=== PATIENT | male | born 1980 | race Caucasian/White ===

== ENCOUNTER 2017-03-06 00:06 | Inpatient (IN) | payer OTHER ==
[~2017-03-06] VITALS: Ht 190.5 cm; Wt 89.8 kg
--- NOTE | 2017-03-06 02:05 | NUR ---
PRE- ADMISSION NOTE : The patient is a 36-year-old male who presents to [facility] for medically supervised withdrawal from HEROIN , Xanax, MJ. The patient denies history of withdrawal-induced seizures , denies to have PCP at this time. Pt. denies history of SI/HI, but states history of audio and video hallucinations when was intoxicated. Patient reports the following symptoms of withdrawal: anxiety, restlessness, mild generalized pain, tremors, difficulty concentrating, anhedonia. Pt. is cooperative, A/O x3, speech is slow and audible. Heart rate is regular. Pt denies chest pain or SOB. PERRLA, breathing is even and unlabored. Lung sounds clear in all lobes, abdomen is soft, pt complains of constipation related to opiate use. GW=167/68, HR=82, SpO2=97% with RA, RR=16, Temp=98.1. Last BM on 03/04/17. Pt's skin is warm, dry and intact. Pt. was able to provide UDS sample , see results in the PC chart. Pt. will be admitted to the unit.
[2017-03-06] MEDS ORDERED: BUPRENORPHINE HCL 2 MG TAB.SUBL SL PRN (02:15)
[2017-03-06] MEDS ORDERED: DICYCLOMINE HCL 20 MG TABLET PO PRN (02:15)
[2017-03-06] MEDS ORDERED: LORAZEPAM 2 MG/1 ML VIAL IM PRN (02:15)
[2017-03-06] MEDS ORDERED: ONDANSETRON ODT 4 MG TAB.RAPDIS SL PRN (02:15)
[2017-03-06] MEDS ORDERED: MIRALAX 17 GM POWD.PACK PO PRN (02:15)
[2017-03-06] MEDS ORDERED: METHOCARBAMOL 750 MG TABLET PO PRN (02:15)
[2017-03-06] MEDS ORDERED: LOPERAMIDE HCL 2 MG CAPSULE PO PRN ×2 (02:15)
[2017-03-06] MEDS ORDERED: LORAZEPAM 1 MG TABLET PO PRN ×2 (02:15)
[2017-03-06] MEDS ORDERED: ONDANSETRON 4 MG/2 ML VIAL IM PRN (02:15)
[2017-03-06] MEDS ORDERED: MAG HYDROX/AL HYDROX/SIMETH 30 ML LIQUID UDC PO PRN (02:15)
[2017-03-06] MEDS ORDERED: MAGNESIUM HYDROXIDE 30 ML LIQUID UDC PO PRN (02:15)
[2017-03-06] MEDS ORDERED: IBUPROFEN 400 MG TABLET PO PRN (02:15)
[2017-03-06] MEDS ORDERED: ACETAMINOPHEN 325 MG TABLET PO PRN (02:15)
[2017-03-06 02:38] LABS: *AMPHETAMINE, URINE NEGATIVE (NEGATIVE); *BARBITURATE, URINE NEGATIVE (NEGATIVE); *CANNABINOID, URINE POSITIVE (NEGATIVE); *COCCAINE, URINE NEGATIVE (NEGATIVE); *OPIATE, URINE POSITIVE (NEGATIVE); *PHENCYCLIDINE SCREEN,URINE NEGATIVE (NEGATIVE)
[2017-03-06] MEDS ORDERED: ALPR1TAB2 PO (02:56)
[2017-03-06] MEDS ORDERED: BUPR1FIL SL (02:56)
[2017-03-06] MEDS ORDERED: CLON0.1T PO (02:56)
--- NOTE | 2017-03-06 03:00 | NUR ---
ADMISSION NOTE : The patient is a 36-year-old male who presents to [facility] for medically supervised withdrawal from HEROIN , Xanax, MJ. He was admitted on 03/05/2017 at 02:15. It is his fifth Detox. Pt. is Full Code, on Reg.Diet, NKA. Pt. is on FALL precautions. The patient denies history of withdrawal-induced seizures , denies to have at this time. Pt. denies history of SI/HI, but states history of audio and video hallucinations when was intoxicated. Patient reported the following symptoms of withdrawal: anxiety, restlessness, mild generalized pain, tremors, difficulty concentrating, anhedonia. He states his substance use has negatively impacted his life by impairing close relationships, negatively impacting his physical and mental health. Upon admission pt. is cooperative, A/O x3, speech is slow and audible. Heart rate is regular. Pt denies chest pain or SOB. PERRLA, breathing is even and unlabored. Lung sounds clear in all lobes, abdomen is soft, pt complains of constipation related to opiate use. IO=050/68, HR=82, SpO2=97% with RA, RR=16, Temp=98.1. Last BM on 03/04/17. Pt's skin is warm, dry and intact. Pt was oriented to room and unit. Pt. was able to provide UDS sample , see results in the PC chart. Safety measures in place : bed on lowest position with side rails x2 up for safety, call light within reach. Will continue to monitor closely and offer help. SUBSTANCE ABUSE HISTORY : -Xanax 1.5mg QHS PO unknown time ( pt. is intoxicated, cant provide correct information, last use on 03/05/2017, uses since 2011 -HEROIN 2.5gm QD IV since 2014, last use on 03/05/2017, uses since 2011 -Marijuana 1 gm QD smoking ,last 8 years , , last use on 03/05/2017, uses since 2002 Occasionally Cocaine , Meth (IV+smoking). Pt. smokes 20 cig. QD. PAST Tx HISTORY : X4 Detox. X2 Rehab. PAST MEDICAL HISTORY : BIPOLAR . Past Family History : Parents, 7 sisters and 7 brothers are in good health
[2017-03-06 03:36] LABS: BASOPHILS % (AUTO) 0.4 % (0.0-2.0); EOSINOPHILS # (AUTO) 0.1 K/uL (0.0-0.7); EOSINOPHILS % (AUTO) 1.3 % (0.0-7.0); HEMATOCRIT 47.2 % (40-50); HEMOGLOBIN 15.8 G/DL (14.0-18.0); LYMPHOCYTES # (AUTO) 1.7 K/UL (0.8-4.8); LYMPHOCYTES % (AUTO) 17.2 % (20.5-51.5); MEAN CORPUSCULAR HEMOGLOBIN 30.2 UUG (27.0-31.0); MEAN CORPUSCULAR HGB CONC 33 g/dL (32.0-37.0); MEAN CORPUSCULAR VOLUME 90.5 FL (82.0-92.0); MONOCYTES # (AUTO) 0.5 K/UL (0.1-1.30); NEUTROPHILS # (AUTO) 7.4 K/UL (1.8-8.9); NEUTROPHILS % (AUTO) 76.1 % (38.5-71.5); PLATELET COUNT (AUTO) 244 K/UL (150-450); RED BLOOD CELL COUNT(AUTO) 5.22 MIL/UL (4.7-6.1); WHITE BLOOD COUNT (AUTO) 9.7 K/UL (4.0-11.2)
[2017-03-06 03:44] LABS: ALANINE AMINOTRANSFERASE 26 U/L (16-63); ALKALINE PHOSPHATASE 60 U/L (50-136); AMYLASE 75 U/L (25-115); ASPARTATE AMINOTRANSFERASE 17 U/L (15-37); BILIRUBIN,TOTAL 0.7 mg/dL (0.2-1.0); CARBON DIOXIDE 31 mmol/L (21-32); CHLORIDE 100 mmol/L (98-107); CREATININE 1.1 mg/dL (0.6-1.3); GLUCOSE 117 mg/dL (74-106); LIPASE 50 U/L (73-393); MAGNESIUM 2.1 mg/dL (1.8-2.4); POTASSIUM 3.9 mmol/L (3.5-5.1); TOTAL PROTEIN, SERUM 7.8 g/dL (6.4-8.2); UREA NITROGEN, BLOOD 17 mg/dL (7-18)
[2017-03-06 03:52] LABS: THYROID STIMULATING HORMONE 0.325 mIU/mL (0.358-3.740)
[2017-03-06 03:58] LABS: ETHANOL < 3 MG/DL (0-0)
[2017-03-06 04:00] VITALS: BP 101/62
--- NOTE | 2017-03-06 06:35 | NUR ---
END OF SHIFT NOTE : The patient is a 36-year-old male who presents to [facility] for medically supervised withdrawal from HEROIN , Xanax, MJ. The patient denies history of withdrawal-induced seizures . Pt. denies history of SI/HI, but states history of audio and video hallucinations when was intoxicated. Patient is on precaution. Pt remains compliant with the treatment plan. No PRNs were given during my shift. V/S remain WNL. RR=16, even and unlabored, lungs clear upon auscultation, abdomen soft and non- distended. Pt denies nausea, vomiting and diarrhea. CIWA and COWS taken when pt. was alert during the night, LAST CIWA=9 ,COWS= 7 at 0400 , OCASXE=646 ml, voided x1 , slept 0 hours. Safety measures in place : bed on lowest position with side rails x2 up for safety, call light within reach. Will continue to monitor closely and offer help.
--- NOTE | 2017-03-06 07:07 | NUR ---
Start of Shift Notes: Received patient in his room. Alert and verbally responsive. Oriented x 4. Able to make his needs known. Respirations even and unlabored. No SOB noted. Skin warm and dry to touch. Abdomen soft and non-distended. BS (+) in all 4 quadrants. No complains of N/V/D or constipation noted. No abdominal discomfort noted. Bladder non-distended. No complains of dysuria noted. Voids independently. Ambulatory ad josr with steady gait. Patient is a 36 year old male admitted for opiate/meth and BZO dependence who was placed on PRNs at this time. Prior to admission, patient was using 2.5 grams of Heroin, 1.5mg of Xanax, 1 gram of marijuana, meth and cocaine. Has past medical hx of Bipolar disorder.l Educated patient on his current plan of care for the day and his medication regimen. Encouraged oral fluid intake and encouraged group participation to learn new skills to prevent relapse. Will continue to monitor.
[2017-03-06 08:00] VITALS: BP 107/57
--- NOTE | 2017-03-06 08:00 | NUR ---
COWS/CIWA Deferred: Patient is laying in bed with eyes closed. Breathing even and unlabored. No SOB noted. COWS/CIWA deferred at this time. VS stable. Addendum: 03/06/17 at 0944 by ABBI BROWN LVN Amended: Links added.
[2017-03-06] MEDS ORDERED: DICYCLOMINE HCL 10 MG CAPSULE PO PRN (08:15)
[2017-03-06] MEDS: MULTIVITAMINS,THERAPEUTIC TABLET PO SCH (09:00)
--- NOTE | 2017-03-06 09:42 | NUR ---
MVI at 0900 not administered: MVI at 0900 not administered. Patient is in bed with eyes closed. Breathing even and unlabored. Refused to be disturbed at this time. States "I feel fine, I just want to sleep." Education provided. Will continue to monitor.
[2017-03-06 12:00] VITALS: BP 107/60
--- NOTE | 2017-03-06 12:00 | NUR ---
JULIANNE/CIKALE Deferred: Patient is laying in bed with eyes closed. Breathing even and unlabored. No SOB noted. refused to be woken up. JULIANNE/CIWA deferred at this time. VS stable. Addendum: 03/06/17 at 1418 by ABBI BROWN LVN Amended: Links added.
--- NOTE | 2017-03-06 15:00 | NUR ---
Mid Shift Notes: Attempted to assess patient, patient continues to sleep since the beginning of the shift. Denies any complains at this time. Will continue to monitor.
[2017-03-06 16:00] VITALS: BP 121/60
--- NOTE | 2017-03-06 16:00 | NUR ---
COWS/CIWA Deferred: Patient is laying in bed with eyes closed. Breathing even and unlabored. No SOB noted. Refused to be bothered. Was agitated, stated "Yea, just leave me alone!" COWS/CIWA deferred at this time. VS stable.
--- NOTE | 2017-03-06 16:32 | NUR ---
MD Communication: Notified Dr. Mercado of patient's refusal to be assessed by nurse. Per MD, continue to monitor the patient.
--- NOTE | 2017-03-06 18:54 | NUR ---
End of Shift Notes: Patient continues to be on PRNs and close monitoring. VS monitored closely. No significant abnormalities noted. Withdrawal symptoms were closely monitored. Patient refused to be woken up or be bothered when nurse is attempting to assess him. Encouraged patient to verbalize how he is feeling but patient states Just leave me alone. Patient is also irritable during the day. Unable to participate in group due to his withdrawal symptoms. Encouraged to participate in group and encouraged to increase oral fluid intake. All needs met and attended. Will continue to monitor closely.
--- NOTE | 2017-03-06 19:25 | NUR ---
START OF SHIFT NOTE : The patient is a 36-year-old male who presents to [facility] for medically supervised withdrawal from HEROIN , Xanax, MJ. The patient denies history of withdrawal-induced seizures . Pt. denies history of SI/HI, but states history of audio and video hallucinations when was intoxicated. Patient is fall precautions. Patient is irritable, moderate agitated , repeats "Give me my Subutex, it is a wrong place for me". Encouraged to participate in group and encouraged to increase oral fluid intake. RT=871/80, HR=76/min, Tuj2=510%, RR=16, unlabored and even. Skin is intact and dry, pupils reactive to the light, 3mm each. CIWA=10, COWS=7. Pt. complains of mild body ache, increased level of anxiety. PRN meds will be given NOHEMY. Safety measures in place : bed on lowest position with side rails x2 up for safety, call light within reach. Will continue to monitor closely and offer help.
--- NOTE | 2017-03-06 19:45 | NUR ---
PRN ATIVAN, BENADRYL, CATAPRESS, VISTARIL Pt. complains of increased level of anxiety, flashes (skin is dry), sleeplessness. Pt. also is agitated. PRN ATIVAN, BENADRYL, CATAPRESS, VISTARIL as ordered. CIWA=10, COWS=7. Safety measures in place : bed on lowest position with side rails x2 up for safety, call light within reach. Will continue to monitor closely and offer help.
[2017-03-06 20:00] VITALS: BP 135/80
[2017-03-06] MEDS: HYDROXYZINE PAMOATE 25 MG CAPSULE PO PRN (20:10)
[2017-03-06] MEDS: CLONIDINE HCL 0.1 MG TABLET PO PRN (20:11)
[2017-03-06] MEDS: diphenhydrAMINE 50 MG CAPSULE PO PRN (20:11)
--- NOTE | 2017-03-06 20:45 | NUR ---
RE-ASSESSMENT ATIVAN, BENADRYL, CATAPRESS, VISTARIL Pt. is resting in the bed, eyes closed. Pt. states decreased level of anxiety, RR=16, unlabored and even. Safety measures in place : bed on lowest position with side rails x2 up for safety, call light within reach. Will continue to monitor closely and offer help Addendum: 03/07/17 at 0122 by LEONOR SPRING RN CIWA=5 at 20:45
[2017-03-07] VITALS: BP 138/80
--- NOTE | 2017-03-07 01:00 | NUR ---
PRN SUBUTEX Pt. complains of increased level of anxiety, nausea, one episode of diarrhea. PRN SUBUTEX given as ordered. CIWA=5, COWS=15. Safety measures in place : bed on lowest position with side rails x2 up for safety, call light within reach. Will continue to monitor closely and offer help.
--- NOTE | 2017-03-07 02:00 | NUR ---
RE-ASSESSMENT SUBUTEX Pt. is resting in the bed, he states to feel better .COWS=8. Safety measures in place : bed on lowest position with side rails x2 up for safety, call light within reach. Will continue to monitor closely and offer help.
[2017-03-07 04:00] VITALS: BP 122/79
[2017-03-07] MEDS: CLONIDINE HCL 0.1 MG TABLET PO PRN ×2 (04:41→23:56)
--- NOTE | 2017-03-07 04:45 | NUR ---
PRN CLONIDINE Pt. complains of flashes. PRN CLONIDINE given as ordered. Safety measures in place : bed on lowest position with side rails x2 up for safety, call light within reach. Will continue to monitor closely and offer help.
--- NOTE | 2017-03-07 05:22 | NUR ---
RE-ASSESSMENT CLONIDINE Pt. is sleeping, RR=14 unlabored and even. Safety measures in place : bed on lowest position with side rails x2 up for safety, call light within reach. Will continue to monitor closely and offer help.
--- NOTE | 2017-03-07 06:59 | NUR ---
END OF SHIFT NOTE : The patient is a 36-year-old male who presents to [facility] for medically supervised withdrawal from HEROIN , Xanax, MJ. The patient denies history of withdrawal-induced seizures . Pt. denies history of SI/HI, but states history of audio and video hallucinations when was intoxicated. Patient is fall precautions. Pt remains compliant with the treatment plan. Pt.experienced withdrawal symptoms in the night, therefor PRN ATIVAN, BENADRYL, CATAPRESS, VISTARIL, SUBUTEX were given during my shift (see notes). V/S remain WNL. RR=14, even and unlabored, lungs clear upon auscultation, abdomen soft and non- distended. Pt denies nausea, vomiting and diarrhea. CIWA and COWS taken when pt. was alert during the night, LAST CIWA=5 ,COWS=8 at 0600 (COWS=15 at 01:00) , [id number] ml, voided x3 , slept 5 hours. Safety measures in place : bed on lowest position with side rails x2 up for safety, call light within reach. Will continue to monitor closely and offer help.
--- NOTE | 2017-03-07 07:10 | NUR ---
Start of Shift Endorsement received from nightshift nurse. PT is a 36 y/o male admitted for Heroin, Xanax and Meth dependence. Pt has not been placed on a taper yet, pt is under observation at this time under the care of Dr. Mercado. Pt is moderately withdrawing AEB COWS 8, CIWA 5 at 0400. PT received PRN Ativan, Benadryl, Vistaril, Subutex and Clonidine x2. PT reports sleeping 5 hours. VS WNL. Full Code. Pt is alert and oriented x4. Call light within reach. All safety measures are in place, side rails up x2. All needs have been met at this time. Will continue to monitor.
[2017-03-07 08:00] VITALS: BP 119/75
[2017-03-07 08:06] LABS: HEPATITIS B SURFACE AG Negative (Negative)
[2017-03-07] MEDS ORDERED: TUBERCULIN,PURIF.PROT.DERIV. 5 TU/0.1 ML TEST ID ONE (09:00)
[2017-03-07] MEDS: MULTIVITAMINS,THERAPEUTIC TABLET PO SCH (09:00)
[2017-03-07] MEDS ORDERED: LORAZEPAM 1 MG TABLET PO PRN ×3 (11:30→14:15)
[2017-03-07 12:00] VITALS: BP 115/74
[2017-03-07] MEDS: BUPRENORPHINE HCL 2 MG TAB.SUBL SL SCH ×2 (12:19→21:23)
--- NOTE | 2017-03-07 12:19 | NUR ---
PRN Ativan Administered PRN Ativan 1mg for CIWA 9 per MD orders. Will re-assess.
--- NOTE | 2017-03-07 12:45 | NUR ---
Medication Re-assessment Medication was effective AEB CIWA 4 upon re-assessment.
--- NOTE | 2017-03-07 15:07 | NUR ---
Therapist Prompted Client for group. Client agreed to attend today.
[2017-03-07 16:00] VITALS: BP 137/78
[2017-03-07] MEDS: HYDROXYZINE PAMOATE 25 MG CAPSULE PO PRN (16:42)
--- NOTE | 2017-03-07 16:42 | NUR ---
PRN Vistaril Administered PRN Vistaril 50mg for moderate anxiety and agitation reported by the pt.
--- NOTE | 2017-03-07 17:00 | NUR ---
Medication Re-assessment PT reports mild anxiety at this time and reports medication was effective.
--- NOTE | 2017-03-07 19:00 | NUR ---
End of Shift Endorsement given to nightshift nurse. PT is a 36 y/o male admitted for Heroin, Xanax and Meth dependence. Pt has been placed on a modified Subutex taper. Pt is moderately withdrawing AEB COWS 9, CIWA 5 at 1600. PT received PRN Ativan and Vistaril. PT participated in groups and activities. Educated pt on diet and medication regimen. Pt is compliant with medication regimen. Intake: 2800ml, Void x3, BM x1. VS WNL. Full Code. Pt is alert and oriented x4. Call light within reach. All safety measures are in place, side rails up x2. All needs have been met at this time. Will continue to monitor.
--- NOTE | 2017-03-07 19:30 | NUR ---
START OF SHIFT Pt is a 36 y/o male admitted on 03/06/17 for benzo, opiate dependence. Pt reports substance history of heroin 2.5 gram IV since 2014, Xanax 1.5 gram nightly for a few months, MJ 1 gram daily for 8 years and occasional meth and cocaine use. Pt is on fall/seizure precautions, full code, NKA, regular diet. No reported seizure hx. Pt reports PMH of bipolar disorder and anxiety. Pt is on a 3 day Subutex taper started today with PRN Lorezepam, tolerating well. Upon assessment pt was in room and presents with anxiety, chills, sweats, diaphoresis, sense of panic, restless legs, fine tremors, flushed face, decreased appetite, nasal congestion, rhinorrhea, dysphoria, anhedonia, and fatigue. Respirations 16, even and unlabored. Denies N/V/D. Denies chest pain or SOB. Medications due. Safety measures in place. Call light within reach. Will continue to monitor.
[2017-03-07 20:00] VITALS: BP 139/85
[2017-03-07] MEDS: CLONIDINE HCL 0.1 MG TABLET PO SCH (21:23)
[2017-03-07] MEDS: GABAPENTIN 300 MG CAPSULE PO SCH (21:23)
--- NOTE | 2017-03-07 23:56 | NUR ---
PRN CLONIDINE ADMINISTRATION Pt presents with anxiety, chills, sweats. BP 129/79 HR 73. Safety measures in place. Call light within reach. Will continue to monitor.
[2017-03-08] VITALS: BP 129/79
[2017-03-08] MEDS: diphenhydrAMINE 50 MG CAPSULE PO PRN (00:49)
--- NOTE | 2017-03-08 00:49 | NUR ---
PRN BENADRYL ADMINISTRATION Pt requests sleep aid. Safety measures in place. Call light within reach. Will continue to monitor.
--- NOTE | 2017-03-08 00:56 | NUR ---
PRN CLONIDINE REASSESSMENT Pt is awake and verbalizes improvement in anxiety, sweats and chills. Chills and sweats have ceased. Safety measures in place. Call light within reach. Will continue to monitor.
--- NOTE | 2017-03-08 01:49 | NUR ---
PRN BENADRYL REASSESSMENT Pt is laying in bed with eyes closed. Respirations 16, even and unlabored. Safety measures in place. Call light within reach. Will continue to monitor.
[2017-03-08 04:00] VITALS: BP 91/56
--- NOTE | 2017-03-08 04:00 | NUR ---
COW/CIWA DEFERRED Pt is laying in bed with eyes closed, COW/CIWA deferred, to be assessed when pt is awake per orders. Respirations 16, even and unlabored. Safety measures in place. Call light within reach. Will continue to monitor.
--- NOTE | 2017-03-08 07:19 | NUR ---
END OF SHIFT Pt is a 36 y/o male admitted on 03/06/17 for benzo, opiate dependence. Pt reports substance history of heroin 2.5 gram IV since 2014, Xanax 1.5 gram nightly for a few months, MJ 1 gram daily for 8 years and occasional meth and cocaine use. Pt is on fall/seizure precautions, full code, NKA, regular diet. No reported seizure hx. Pt reports PMH of bipolar disorder and anxiety. Pt is on a 3 day Subutex taper started 03/07/17 with PRN Lorezepam, tolerating well. Pt presented with anxiety, chills, sweats, diaphoresis, sense of panic, restless legs, fine tremors, flushed face, decreased appetite, nasal congestion, rhinorrhea, dysphoria, anhedonia, and fatigue. Scheduled medications and PRN Clonidine and Benadryl administered, effective in S/S of withdrawal AEB COW 6 CIWA 6 lowered to COW 4 CIWA 3. Slept 8 hours. Intake 1100 ml, void x 2, stool x 0. Safety measures in place. Call light within reach. Pts needs have been met. Endorsed to day shift nurse.
--- NOTE | 2017-03-08 07:20 | NUR ---
Start of Shift Notes: Received patient in his room. Alert and verbally responsive. Oriented x 4. Able to make his needs known. Respirations even and unlabored. No SOB noted. Skin warm and dry to touch. Abdomen soft and non-distended. BS (+) in all 4 quadrants. No complains of N/V/D or constipation noted. No abdominal discomfort noted. Bladder non-distended. No complains of dysuria noted. Voids independently. Ambulatory ad josr with steady gait. Patient is a 36 year old male admitted for opiate/meth and BZO dependence who was placed on modified 3-day Subutex taper as ordered. Prior to admission, patient was using 2.5 grams of Heroin, 1.5mg of Xanax, 1 gram of marijuana, meth and cocaine. Has past medical hx of Bipolar disorder.l Educated patient on his current plan of care for the day and his medication regimen. Encouraged oral fluid intake and encouraged group participation to learn new skills to prevent relapse. Will continue to monitor.
[2017-03-08 08:00] VITALS: BP 115/78
[2017-03-08] MEDS: CLONIDINE HCL 0.1 MG TABLET PO SCH ×2 (08:41→21:41)
[2017-03-08] MEDS: MULTIVITAMINS,THERAPEUTIC TABLET PO SCH (08:41)
[2017-03-08] MEDS: GABAPENTIN 300 MG CAPSULE PO SCH ×3 (08:41→21:41)
[2017-03-08] MEDS: BUPRENORPHINE HCL 2 MG TAB.SUBL SL SCH ×3 (08:41→21:40)
--- NOTE | 2017-03-08 10:48 | NUR ---
Transfer of care: Care transferred to receiving RN. All pertinent information explained. VS stable. Last COWS 5 prior to detox meds.
[2017-03-08 12:00] VITALS: BP 107/52
[2017-03-08 16:00] VITALS: BP 120/86
--- NOTE | 2017-03-08 17:13 | NUR ---
Therapist prompted client to attend daily group sessions. Client stated he would attend.
--- NOTE | 2017-03-08 19:16 | NUR ---
End of Shift Endorsement given to nightshift nurse. PT is a 36 y/o male admitted for Heroin, Xanax and Meth dependence. Pt has been placed on a modified Subutex taper. Pt is moderately withdrawing AEB COWS 4, CIWA 4 at 1600. PT did not receive any PRN medications. PT participated in groups and activities. Reinforced education on medication regimen and withdrawal symptoms and S/E of medications. Pt is compliant with medication regimen. Intake: 5160ml, Void x8, BM x1. VS WNL. Full Code. Pt is alert and oriented x4. Call light within reach. All safety measures are in place, side rails up x2. All needs have been met at this time. Will continue to monitor.
--- NOTE | 2017-03-08 19:30 | NUR ---
START OF SHIFT Pt is a 36 y/o male admitted on 03/06/17 for benzo, opiate dependence. Pt reports substance history of heroin 2.5 gram IV since 2014, Xanax 1.5 gram nightly for a few months, MJ 1 gram daily for 8 years and occasional meth and cocaine use. Pt is on fall/seizure precautions, full code, NKA, regular diet. No reported seizure hx. Pt reports PMH of bipolar disorder and anxiety. Pt is on a 3 day Subutex taper started today with PRN Lorezepam, tolerating well. Upon assessment pt presents with anxiety, intermittent chills, intermittent sweats, occasional sense of panic, agitation, restlessness, flushed face, decreased appetite, intermittent nasal congestion, dysphoria, anhedonia. Respirations 16, even and unlabored. Denies N/V/D. Denies chest pain or SOB. Medications due. Safety measures in place. Call light within reach. Will continue to monitor. Addendum: 03/09/17 at 0511 by JEMIMA GOTTLIEB RN 3 DAY SUBUTEX TAPER STARTED 03/07/17
[2017-03-08 20:00] VITALS: BP 140/78
--- NOTE | 2017-03-09 | NUR ---
COW/CIWA DEFERRED AND VITALS REFUSED Pt is laying in bed with eyes closed, COW/CIWA deferred, to be assessed when pt is awake per orders. Vitals refused. Respirations 16, even and unlabored. Safety measures in place. Call light within reach. Will continue to monitor.
[2017-03-09 01:30] VITALS: BP 132/85
[2017-03-09] MEDS: diphenhydrAMINE 50 MG CAPSULE PO PRN ×2 (01:39→21:59)
[2017-03-09] MEDS: CLONIDINE HCL 0.1 MG TABLET PO PRN (01:39)
--- NOTE | 2017-03-09 01:39 | NUR ---
PRN CLONIDINE AND BENADRYL ADMINISTRATION Pt reports he has "not fully fell asleep" and presents with anxiety, agitation and chills. Pt requests aid for sleep. BP 132/85 HR 72. Safety measures in place. Call light within reach. Will continue to monitor.
--- NOTE | 2017-03-09 02:39 | NUR ---
PRN CLONIDINE AND BENADRYL REASSESSMENT Pt is laying in bed with eyes closed. Respirations 16, even and unlabored. Safety measures in place. Call light within reach. Will continue to monitor.
--- NOTE | 2017-03-09 07:23 | NUR ---
END OF SHIFT Pt is a 36 y/o male admitted on 03/06/17 for benzo, opiate dependence. Pt reports substance history of heroin 2.5 gram IV since 2014, Xanax 1.5 gram nightly for a few months, MJ 1 gram daily for 8 years and occasional meth and cocaine use. Pt is on fall/seizure precautions, full code, NKA, regular diet. No reported seizure hx. Pt reports PMH of bipolar disorder and anxiety. Pt is on a 3 day Subutex taper started 03/07/17 with PRN Lorezepam, tolerating well. Pt presented with anxiety, intermittent chills, intermittent sweats, occasional sense of panic, agitation, restlessness, flushed face, decreased appetite, intermittent nasal congestion, dysphoria, anhedonia. Scheduled medications and PRN Clonidine and Benadryl administered, effective in S/S of withdrawal as verbalized by pt. Last COW 2 CIWA 3 at 2000. Pt slept 5 hours. Intake 2155 ml, void x 5, stool x 0. Safety measures in place. Call light within reach. Pts needs have been met. Endorsed to day shift nurse.
--- NOTE | 2017-03-09 07:30 | NUR ---
Start of Shift Report from the night nurse: pt is a 36 y/o male her for Opiates r/t Heroin 2.5g IV since 2014, Benzo r/t Xanax 1.5mg PO HS for a few months, Marijuana, occasionally methamphetamine and Cocaine occasionally; 3 day Modified Subutex taper ordered. HHx: Smoker, Bipolar and anxiety and multiple relapses. Pt is a full coded, NKA, Regular Diet, fall and seizure precautions ordered. V/S stable, Skin has tracts on BUE's. PRN Benadryl and Clonidine given. Last COWS 2 CIWA 3. pt is asleep in room. Will cont. to monitor the pt.
[2017-03-09 08:00] VITALS: BP 113/64
[2017-03-09] MEDS ORDERED: BUPRENORPHINE HCL 2 MG TAB.SUBL SL SCH (09:00)
[2017-03-09] MEDS: GABAPENTIN 300 MG CAPSULE PO SCH ×3 (10:32→21:59)
[2017-03-09] MEDS: MULTIVITAMINS,THERAPEUTIC TABLET PO SCH (10:32)
[2017-03-09] MEDS: CLONIDINE HCL 0.1 MG TABLET PO SCH ×2 (10:38→21:59)
[2017-03-09 12:00] VITALS: BP 120/68
[2017-03-09] MEDS ORDERED: BUPRENORPHINE HCL 2 MG TAB.SUBL SL ONE (12:00)
[2017-03-09 12:15] VITALS: BP 128/79
[2017-03-09] MEDS ORDERED: HYDR-3895 PO (15:06)
[2017-03-09] MEDS ORDERED: GABA-534 PO ×2 (15:06)
[2017-03-09] MEDS ORDERED: IBUP-1953 PO (15:06)
[2017-03-09] MEDS ORDERED: DIPH50CA37 PO (15:06)
[2017-03-09] MEDS ORDERED: DICY10CA21 PO (15:06)
[2017-03-09] MEDS ORDERED: CLON0.1T14 PO (15:06)
[2017-03-09] MEDS ORDERED: METH-406 PO (15:06)
[2017-03-09 16:00] VITALS: BP 117/77
--- NOTE | 2017-03-09 16:48 | NUR ---
Therapist prompted client to attend group therapy. Client stated that he would attend.
--- NOTE | 2017-03-09 19:20 | NUR ---
End of Shift Report to the night nurse: pt is a 36 y/o male her for Opiates r/t Heroin 2.5g IV since 2014, Benzo r/t Xanax 1.5mg PO HS for a few months, Marijuana, occasionally methamphetamine and Cocaine occasionally; 3 day Modified Subutex taper completed during my shift. HHx: Smoker, Bipolar and anxiety and multiple relapses. Pt is a full coded, NKA, Regular Diet, fall and seizure precautions ordered. V/S stable. Skin has tracts on BUE's. No PRN medications given during my shift. New Orders for d/c tomorrow. Pt attended group therapy and activities. Last COWS 2 CIWA 2.
--- NOTE | 2017-03-09 19:25 | NUR ---
START OF SHIFT Patient is [id number] admitted on 03/06/17 for Heroin and Xanax dependency, history of marijuana use, occasional meth and cocaine use; smokes 20 cigarettes daily. Patient has a past medical history of anxiety and bipolar disorder. Patient completed a 3-day modified Subutex taper and is scheduled for discharge tomorrow. Patient is FULL code, NKA, on regular diet. Upon assessment, patient is alert and oriented x4, vital signs within normal limits, no complaints of pain or discomfort, no distress noted. Patient is on fall and seizure precautions, safety measures in place, bed locked in low position, side rails up x2, call light within reach. Will continue to monitor.
[2017-03-09 20:00] VITALS: BP 120/62
--- NOTE | 2017-03-09 21:59 | NUR ---
PATIENT'S BP RE-CHECKED, PRN BENADRYL GIVEN Upon obtaining 1999 vital signs, patient's BP was 120/62. Patient's BP was 108/70 when taken again at 0, Clonidine 0.1mg was given as ordered. Patient reported difficulty sleeping and requested PRN Benadryl. PRN Benadryl was given PO at 215. Safety measures in place, call light within reach. Will reassess in one hour.
--- NOTE | 2017-03-09 22:59 | NUR ---
PRN BENADRYL REASSESSMENT Patient is resting in bed with eyes closed, breathing is even and unlabored. PRN Benadryl effective. Safety measures in place, call light within reach. Will continue to monitor.
--- NOTE | 2017-03-10 | NUR ---
MIDNIGHT VITALS REFUSED, COWS & CIWA DEFERRED Patient refused to be woken up for midnight vital signs. Patient's breathing is even and unlabored, respirations are 16/min. Patient is asleep, COWS and CIWA cannot be scored at this time. To be assessed while patient is awake, per protocol. Safety measures in place, call light within reach. Will continue to monitor.
--- NOTE | 2017-03-10 04:00 | NUR ---
0400 VITALS REFUSED, COWS & CIWA DEFERRED Patient refused to be woken up for 0400 vital signs. Patient's breathing is even and unlabored, respirations are 16/min. Patient is asleep, COWS and CIWA cannot be scored at this time. To be assessed while patient is awake, per protocol. Safety measures in place, call light within reach. Will continue to monitor.
--- NOTE | 2017-03-10 07:05 | NUR ---
END OF SHIFT Patient is [id number] admitted on 03/06/17 for Heroin and Xanax dependency, history of marijuana use, occasional meth and cocaine use; smokes 20 cigarettes daily. Patient has a past medical history of anxiety and bipolar disorder. Patient completed a 3-day modified Subutex taper and is scheduled for discharge today. Patient is FULL code, NKA, on regular diet. PRN Benadryl was given PO at 2159, and was effective. Patient slept total of 7 hrs, intake 600 mL, void x5, stool x0. Last COWS 2 and CIWA 3. Patient is on fall and seizure precautions, safety measures in place, bed locked in low position, side rails up x2, call light within reach. Will endorse to day shift.
--- NOTE | 2017-03-10 07:30 | NUR ---
START OF SHIFT NOTE: Report received from shift nurse manager nurse.Patient is [id number] admitted on 03/06/17 for Heroin and Xanax dependency, history of marijuana use, occasional meth and cocaine use. To be discharged this AM. Pt is alert and oriented X4. Color good, skin warm and dry. Respirations even and unlabored, Safety precautions observed. Call light within reach.
[2017-03-10 08:25] VITALS: BP 122/60
--- NOTE | 2017-03-10 09:00 | NUR ---
VSS. Discharge papers signed. No home meds
[2017-03-10 09:08] VITALS: BP 126/74
[2017-03-10] MEDS: CLONIDINE HCL 0.1 MG TABLET PO SCH (09:08)
[2017-03-10] MEDS: MULTIVITAMINS,THERAPEUTIC TABLET PO SCH (09:08)
[2017-03-10] MEDS: GABAPENTIN 300 MG CAPSULE PO SCH (09:08)
--- NOTE | 2017-03-10 10:55 | NUR ---
Pt discharged in stable condition with all valuables,and belongings. No home meds. To [facility] via private car by Tamir
== END 2017-03-10 10:55 | disposition home or self-care (01) | DRG 895 ==
LOC: SRC 00:51
PROVIDERS: ADMIT Internal Medicine; ATTEND Internal Medicine
PROC: HZ2ZZZZ Detoxification Services for Substance Abuse Treatment (ICD-10-PCS; principal; 2017-03-06)
PROC: HZ41ZZZ Group Counseling for Substance Abuse Treatment, Behavioral (ICD-10-PCS; 2017-03-07)
PROC: HZ31ZZZ Individual Counseling for Substance Abuse Treatment, Behavioral (ICD-10-PCS; 2017-03-09)
DX: F11.23 Opioid dependence with withdrawal (principal); F31.9 Bipolar disorder, unspecified; E07.81 Sick-euthyroid syndrome; F12.20 Cannabis dependence, uncomplicated; F41.9 Anxiety disorder, unspecified; Z79.899 Other long term (current) drug therapy; F15.10 Other stimulant abuse, uncomplicated; F14.10 Cocaine abuse, uncomplicated; F17.210 Nicotine dependence, cigarettes, uncomplicated
CPT/HCPCS: 36415; 70030-TC; 80307; 80346; 80349; 80361; 83690; 83735; 84443; 85025; 86592; 86705; 86803; 87340; 87806; A4663; G0480; Q0163